=== PATIENT | female | born 1970 | race Two or more races ===

== ENCOUNTER 2021-07-11 21:04 | Emergency (ER) | payer SELFPAY ==
--- NOTE | 2021-07-11 21:11 | ED.RN ---
Pt brought in by [facility]. Per EMS call went out as unresponsive female in [facility] bathroom. Upon arrival of EMS and PD pt was alert and awake and flushing the toilet multiple times Per staff at [facility] patient was found unresponsive on floor with a needle in her arm. Pt arrives to ED, ambulated from cot to bed and gave us her name and birthday, patient then states she doesn't want to check in and does not want to see a doctor. Dr Chavez notified and tried to see her but patient immediately left the department. PT had never been here before and registration was not able to speak with patient.
[2021-07-11 21:14] VITALS: TEMP -17.7; TEMP 0
== END 2021-07-11 21:15 | disposition left against medical advice (07) ==
LOC: ED 21:14
DX: Z53.21 Procedure and treatment not carried out due to patient leaving prior to being seen by health care provider (principal)
CPT/HCPCS: 99281